=== PATIENT | female | born 1985 | race Caucasian/White ===

== ENCOUNTER → 2021-03-25 18:21 | Outpatient (CLI) | payer MEDICAID, SELFPAY ==
[2021-03-25 19:51] LABS: Alanine Aminotransferase 13 U/L (12-78); Albumin Level 4.5 g/dl (3.5-5.0); Albumin/Globulin Ratio 1.5 (1.1-1.8); Alkaline Phosphatase 89 U/L (38-126); Anion Gap 13.6 mEq/L (5-15); Aspartate Amino Transferase 25 U/L (14-36); Bilirubin,Total 0.3 mg/dl (0.2-1.3); Blood Urea Nitrogen 10 mg/dl (7-17); Calcium 9.1 mg/dl (8.4-10.2); Carbon Dioxide 27 mmol/L (22.0-30.0); Chloride 104 mmol/L (98-107); Chol/HDL Ratio 3.5 (1-3.5); Cholesterol 224 mg/dl (140-200); Estimated Glomerular Filt Rate 112 ml/min (>60); GFR (African American) 136 ML/MIN (>60); Globulin 3.1 g/dL (1.3-3.2); Glucose 93 mg/dl (74-100); HDL Cholesterol 64 mg/dl (40-60); Potassium 4.6 mmoL/L (3.5-5.1); Sodium 140 mmol/L (136-145); Total Protein,Serum 7.6 g/dl (6.3-8.2); Triglycerides 87 mg/dl (30-150); VLDL Cholesterol 17 mg/dL (0-40)
[2021-03-25 20:02] LABS: Direct LDL Cholesterol 136.16 mg/dL (100-129)
[2021-03-25 20:08] LABS: Free T4 (Free Thyroxine) 0.95 ng/dl (0.78-2.19)
[2021-03-25 20:10] LABS: 25-OH Vitamin D, Total 17.6 ng/mL (30-100)
[2021-03-25 20:23] LABS: Thyroid Stimulating Hormone 1.82 uIU/mL (0.465-4.68)
== END ==
PROVIDERS: Visit Provider Emergency Medicine
DX: R53.83 Other fatigue (principal); E55.9 Vitamin D deficiency, unspecified; Z79.899 Other long term (current) drug therapy
CPT/HCPCS: 80053; 80061; 82306; 84439; 84443

== ENCOUNTER → 2021-07-07 11:08 | Outpatient (CLI) | payer MEDICAID, SELFPAY ==
[2021-07-07 12:29] LABS: HCG,Quantitative < 2 mIU/ml (0-5.42)
== END ==
PROVIDERS: PCP Internal Medicine; Visit Provider Obstetrics & Gynecology
DX: Z34.90 Encounter for supervision of normal pregnancy, unspecified, unspecified trimester (principal)
CPT/HCPCS: 36415; 84702

== ENCOUNTER → 2021-07-09 13:53 | Outpatient (CLI) | payer MEDICAID, SELFPAY ==
[2021-07-09 14:42] LABS: Amphetamine/Metha Screen,Urine Negative ng/ml (<1000); Barbiturates Screen,Urine Negative ng/ml (<200)
[2021-07-09 14:43] LABS: Benzodiazepines Screen,Urine Negative ng/ml (<200)
[2021-07-09 14:44] LABS: Cannabinoid Screen,Urine Negative ng/ml (<50); Cocaine Screen,Urine Negative ng/ml (<300)
[2021-07-09 14:45] LABS: Methadone Screen,Urine Negative ng/ml (<300)
[2021-07-09 14:46] LABS: Opiate Screen,Urine Negative ng/ml (<300); Phencyclidine Screen,Urine Negative ng/ml (<25)
== END ==
PROVIDERS: Visit Provider Emergency Medicine
DX: Z79.899 Other long term (current) drug therapy (principal)
CPT/HCPCS: 80305

== ENCOUNTER → 2021-07-18 12:59 | Outpatient (CLI) | payer MEDICAID, SELFPAY ==
--- NOTE | 2021-07-18 12:59 | US_ITS ---
FINAL REPORT CLINICAL HISTORY: left supraclavicular questionable nodule COMPARISON: Sonographic imaging of the left supraclavicular region was obtained. FINDINGS: There is a 1.7 cm, ovoid, isoechoic mass in the left supraclavicular region which does not appear to be a cyst. Findings could represent lipoma. IMPRESSION: 1.7 cm mass in the left supraclavicular region which could represent a lipoma. Reviewed, Interpreted and Dictated by Salas Robbins III, MD Transcribed by Suzanna Hernandez Authenticated by Salas Robbins III, MD on 07/18/2021 02:05:06 PM [facility][1]
== END ==
PROVIDERS: PCP Emergency Medicine; Visit Provider Emergency Medicine
DX: R22.1 Localized swelling, mass and lump, neck (principal)
CPT/HCPCS: 76536

== ENCOUNTER → 2021-08-25 14:37 | Outpatient (CLI) | payer MEDICAID, SELFPAY ==
--- NOTE | 2021-08-25 14:37 | CT_ITS ---
FINAL REPORT TECHNIQUE: After the administration of intravenous contrast, axial images through the chest were performed by computed tomography.This study was performed with techniques to keep radiation doses as low as reasonably achievable, (ALARA). Individualized dose reduction techniques using automated exposure control or adjustment of mA and/or kV according to the patient''s size were employed. CLINICAL HISTORY: left supraclavicle mass FINDINGS: The mediastinal vasculature is well-opacified. There are small bilateral axillary lymph nodes measuring up to 1 cm. No supraclavicular mass is identified. There is no axillary adenopathy. There is no hilar or mediastinal adenopathy. The heart size is normal. There is no pericardial or pleural effusion. Limited images of the upper abdomen are unremarkable. No suspicious infiltrate or nodule identified. IMPRESSION: No acute process. No supraclavicular mass identified. Reviewed, Interpreted and Dictated by Aram Dinero MD Transcribed by Suzanna Hernandez Authenticated by Aram Dinero MD on 08/25/2021 04:07:38 PM [facility]
== END ==
PROVIDERS: PCP Emergency Medicine; Visit Provider Emergency Medicine
DX: R22.2 Localized swelling, mass and lump, trunk (principal)
CPT/HCPCS: 71260; Q9967

== ENCOUNTER → 2021-09-05 11:06 | Outpatient (CLI) | payer MEDICAID, SELFPAY ==
[2021-09-05 17:58] LABS: Barbiturates Screen,Urine Negative ng/ml (<200)
[2021-09-05 18:00] LABS: Benzodiazepines Screen,Urine Negative ng/ml (<200)
[2021-09-05 18:01] LABS: Cannabinoid Screen,Urine Negative ng/ml (<50); Cocaine Screen,Urine Negative ng/ml (<300)
[2021-09-05 18:02] LABS: Methadone Screen,Urine Negative ng/ml (<300); Opiate Screen,Urine Negative ng/ml (<300)
[2021-09-05 18:03] LABS: Phencyclidine Screen,Urine Negative ng/ml (<25)
[2021-09-05 18:44] LABS: Amphetamine/Metha Screen,Urine Positive ng/ml (<1000)
== END ==
PROVIDERS: Visit Provider Emergency Medicine
DX: Z79.899 Other long term (current) drug therapy (principal)
CPT/HCPCS: 80305

== ENCOUNTER → 2021-10-14 09:41 | Outpatient (CLI) | payer MEDICAID, SELFPAY ==
--- NOTE | 2021-10-14 09:48 | XR_ITS ---
FINAL REPORT CLINICAL HISTORY: shoulder pain, no recent injury FINDINGS: 3 views of the left shoulder were obtained. There is no acute fracture or dislocation. The joint spaces are intact. There are no soft tissue abnormalities. IMPRESSION: No acute process. Reviewed, Interpreted and Dictated by Aram Dinero MD Transcribed by Mario Gayle Authenticated by Aram Dinero MD on 10/14/2021 11:38:46 AM [facility]
== END ==
PROVIDERS: PCP Emergency Medicine; Visit Provider Orthopaedic Surgery
DX: M25.512 Pain in left shoulder (principal)
CPT/HCPCS: 73030

== ENCOUNTER → 2021-11-03 19:05 | Outpatient (CLI) | payer MEDICAID, SELFPAY ==
[2021-11-03 14:29] LABS: Amphetamine/Metha Screen,Urine Positive ng/ml (<1000)
[2021-11-03 14:30] LABS: Barbiturates Screen,Urine Negative ng/ml (<200); Benzodiazepines Screen,Urine Negative ng/ml (<200)
[2021-11-03 14:31] LABS: Cannabinoid Screen,Urine Negative ng/ml (<50)
[2021-11-03 14:32] LABS: Cocaine Screen,Urine Negative ng/ml (<300); Methadone Screen,Urine Negative ng/ml (<300)
[2021-11-03 14:33] LABS: Opiate Screen,Urine Negative ng/ml (<300)
[2021-11-03 14:34] LABS: Phencyclidine Screen,Urine Negative ng/ml (<25)
[2021-11-03 18:46] LABS: HCG Qualitative, Serum Negative (Negative)
[2021-11-03 18:56] LABS: Basophils # 0.1 K/mm3 (0-0.2); Basophils % 0.9 % (0.1-2.0); Eosinophils # 0.1 K/mm3 (0.0-0.4); Eosinophils % 1.1 % (0.1-12.0); Hematocrit 44.8 % (37.0-47.0); Hemoglobin 15.1 g/dL (12.2-16.2); Lymphocytes # 2.3 K/mm3 (0.7-4.5); Lymphocytes % 43.5 % (10-50); Mean Corpuscular HGB Conc 33.8 g/dL (31.8-35.4); Mean Corpuscular Hemoglobin 30.8 pg (27.0-31.2); Mean Corpuscular Volume 91.1 fl (81-99); Mean Platelet Volume 12.6 fl (7.4-10.4); Monocytes # 0.4 K/mm3 (0.1-1.0); Monocytes % 8.1 % (1.7-9.3); Neutrophils # 2.4 K/mm3 (1.8-7.8); Neutrophils % 46.4 % (37.0-80.0); Platelet Count 228 K/mm3 (142-424); Red Blood Count 4.92 M/mm3 (4.20-5.40); Red Cell Distribution Width 14.7 % (11.5-17.5); White Blood Count 5.2 K/mm3 (4.8-10.8)
== END ==
PROVIDERS: Visit Provider Emergency Medicine
DX: Z79.899 Other long term (current) drug therapy (principal); R53.83 Other fatigue
CPT/HCPCS: 80305; 84703; 85025

== ENCOUNTER → 2021-12-03 16:01 | Outpatient (CLI) | payer MEDICAID, SELFPAY ==
[2021-12-03 15:34] LABS: Barbiturates Screen,Urine Negative ng/ml (<200); Benzodiazepines Screen,Urine Negative ng/ml (<200)
[2021-12-03 15:35] LABS: Amphetamine/Metha Screen,Urine Negative ng/ml (<1000); Cannabinoid Screen,Urine Negative ng/ml (<50)
[2021-12-03 15:36] LABS: Cocaine Screen,Urine Negative ng/ml (<300)
[2021-12-03 15:37] LABS: Methadone Screen,Urine Negative ng/ml (<300); Opiate Screen,Urine Negative ng/ml (<300)
[2021-12-03 15:38] LABS: Phencyclidine Screen,Urine Negative ng/ml (<25)
== END ==
PROVIDERS: PCP Emergency Medicine; Visit Provider Emergency Medicine
DX: Z79.899 Other long term (current) drug therapy (principal)
CPT/HCPCS: 80305

== ENCOUNTER 2021-12-04 11:04 | Emergency (ER) | payer MEDICAID, SELFPAY ==
[2021-12-04 11:05] VITALS: BP 124/76; PULSE 102; RESP 16; TEMP 36.4; O2SAT 99; BMI 22.8
[2021-12-04 11:27] LABS: Basophils # 0.1 K/mm3 (0-0.2); Basophils % 0.8 % (0.1-2.0); Eosinophils % 0.1 % (0.1-12.0); Hemoglobin 13.5 g/dL (12.2-16.2); Lymphocytes % 20.8 % (10-50); Mean Corpuscular HGB Conc 33.8 g/dL (31.8-35.4); Mean Corpuscular Hemoglobin 31.2 pg (27.0-31.2); Mean Corpuscular Volume 92.1 fl (81-99); Mean Platelet Volume 8.8 fl (7.4-10.4); Monocytes # 0.2 K/mm3 (0.1-1.0); Neutrophils # 7.5 K/mm3 (1.8-7.8); Neutrophils % 76.3 % (37.0-80.0); Platelet Count 282 K/mm3 (142-424); Red Blood Count 4.34 M/mm3 (4.20-5.40); Red Cell Distribution Width 14.8 % (11.5-17.5); White Blood Count 9.8 K/mm3 (4.8-10.8)
[2021-12-04 11:28] LABS: Chloride 106 mmol/L (98-107); Sodium 140 mmol/L (136-145)
[2021-12-04 11:29] LABS: Potassium 3.2 mmoL/L (3.5-5.1)
[2021-12-04 11:31] LABS: Alanine Aminotransferase 41 U/L (12-78); Albumin Level 4.7 g/dl (3.5-5.0); Albumin/Globulin Ratio 1.4 (1.1-1.8); Alkaline Phosphatase 114 U/L (38-126); Anion Gap 21.2 mEq/L (5-15); Aspartate Amino Transferase 49 U/L (14-36); Bilirubin,Total 0.3 mg/dl (0.2-1.3); Blood Urea Nitrogen 14 mg/dl (7-17); Carbon Dioxide 16 mmol/L (22.0-30.0); Estimated Glomerular Filt Rate 62 ml/min (>60); GFR (African American) 75 ML/MIN (>60); Globulin 3.4 g/dL (1.3-3.2); Lipase 37 U/L (23-300); Total Protein,Serum 8.1 g/dl (6.3-8.2)
[2021-12-04 11:32] LABS: Calcium 9.5 mg/dl (8.4-10.2); Glucose 220 mg/dl (74-100)
--- NOTE | 2021-12-04 11:36 | PC.NURSE ---
Ice chips given to PT aware
[2021-12-04 11:41] LABS: Ethyl Alcohol < 10 mg/dl (0-10)
--- NOTE | 2021-12-04 11:43 | HMH.EDSEIZ ---
ED Disposition Clinical Impression: Generalized seizure Disposition: Home, Self-Care Condition on Discharge: Good Instructions: DI for Seizure Disorder -- Adult Referrals: Provider,MD Preet [Primary Care Provider] - Elsie Ayala MD [Staff Physician] - - Critical Care Critical Care Time: No Attestation: On 12/04/21, the high probability of a clinically significant, sudden or life threatening deterioration of the following system(s) required my full and direct attention, intervention and personal management. The time I documented below is in addition to time spent performing reported procedures but includes the following listed in this critical care notation. Medical Decision Making - Medical Records Medical records reviewed: Yes: I reviewed the patient's medical records. - Rj Inquiry Pt receiving controlled substance: No Vital Signs: 12/04/21 11:05 12/04/21 11:59 Temperature 97.5 F L Temperature Source Oral Pulse Rate [Left Radial] 102 H Respiratory Rate 16 18 Blood Pressure 95/61 L Blood Pressure [Right Arm] 124/76 Blood Pressure Mean 72 Blood Pressure Mean [Right Arm] 92 Blood Pressure Source [Right Arm] Automatic Cuff Blood Pressure Position [Right Arm] Sitting 02 Sat by Pulse Oximetry 99 Oxygen Delivery Method Room Air - Lab Data Lab Results 12/04/21 11:05: WBC 9.8, RBC 4.34, Hgb 13.5, Hct 40.0, MCV 92.1, MCH 31.2, MCHC 33.8, RDW 14.8, Plt Count 282, MPV 8.8, Neut % (Auto) 76.3, Lymph % (Auto) 20.8, [place] % (Auto) 2.0, Eos % (Auto) 0.1, Baso % (Auto) 0.8, Neut # (Auto) 7.5, Lymph # (Auto) 2.0, Pratt # (Auto) 0.2, Eos # (Auto) 0.0, Baso # (Auto) 0.1 12/04/21 11:05: Sodium 140, Potassium 3.2 L, Chloride 106, Carbon Dioxide 16 L, Anion Gap 21.2 H, BUN 14, Creatinine 1.00, Estimated GFR 62, Est GFR ( Amer) 75, Glucose 220 H, Calcium 9.5, Total Bilirubin 0.3, AST 49 H, ALT 41, Alkaline Phosphatase 114, Troponin I < 0.01, Total Protein 8.1, Albumin 4.7, Globulin 3.4 H, Albumin/Globulin Ratio 1.4, Lipase 37, TSH 2.51 12/04/21 11:05: Plasma/Serum Alcohol < 10 12/04/21 11:05: HCG, Quant < 2 12/04/21 11:05: Acetone Level None detected 12/04/21 12:47: Urine Color Yellow, Urine Appearance Clear, Urine pH 5.5, Ur Specific [place] 1.025, Urine Protein Trace, Urine Glucose (UA) Negative, Urine Ketones Negative, Urine Blood 1+, Urine Nitrate Negative, Urine Bilirubin Negative, Urine Urobilinogen 0.2, Ur Leukocyte Esterase Negative, Urine RBC 3-5, Urine WBC Occasional, Ur Squamous Epith Cells 3-5, Urine Bacteria Trace 12/04/21 12:49: Urine Opiates Screen Negative, Urine Methadone Screen Negative, Ur Barbituates Screen Negative, Ur Phencyclidine Scrn Negative, U Benzodiazepines Scrn Positive H, Urine Cocaine Screen Negative, U Marijuana (THC) Screen Negative Result diagrams: 12/04/21 11:05 12/04/21 11:05 Orders (Tests/Meds): ED MEDICATIONS Discontinued Medications Generic Name Dose Route Start Last Admin Trade Name Freq PRN Reason Stop Dose Admin Sodium Chloride 1,000 mls @ 999 mls/hr 12/04/21 11:30 12/04/21 11:49 Sod Chlor 0.9% 1000ml Bag IV 12/04/21 12:30 999 mls/hr .Q1H1M ANIBAL Administration Lorazepam 2 mg 12/04/21 11:17 12/04/21 11:17 Lorazepam 2mg/Ml Vial IV 12/04/21 11:18 2 mg ONCE ONE Administration Ondansetron HCl 4 mg 12/04/21 11:30 12/04/21 11:31 Ondansetron 4mg/2ml Vial IV 12/04/21 11:31 4 mg ONCE ONE Administration ORDERS Category Date Time Status Lactic Acid Stat Lab 12/04/21 11:18 Ordered Rapid PCR Covid and Flu A/B Stat Lab 12/04/21 11:19 Ordered Troponin I Q3H Lab 12/04/21 14:30 Ordered Troponin I Q3H Lab 12/04/21 17:30 Ordered UDS [Drug Screen,Urine] Stat Lab 12/04/21 12:49 Results - CT Data CT Scan: Head Time Received: 14:[address] Reviewed: Yes: I have reviewed the patient's CT results, I have viewed the radiologist's interpretation Findings Narrative: IMPRESSION: No acute intracranial abnormality. - R
[2021-12-04 11:47] LABS: Troponin I < 0.01 ng/ml (0.00-0.034)
[2021-12-04 11:52] LABS: Acetone, Serum (Rapid) None Detected (None Detect)
[2021-12-04 11:56] LABS: HCG,Quantitative < 2 mIU/ml (0-5.42)
--- NOTE | 2021-12-04 11:57 | CT_ITS ---
FINAL REPORT CLINICAL HISTORY: ams, seizure FINDINGS: Axial images of the head were obtained without contrast. Coronal reformatted images were also obtained.This study was performed with techniques to keep radiation doses as low as reasonably achievable (ALARA). Individualized dose reduction techniques using automated exposure control or adjustment of mA and/or kV according to the patient's size were employed. There is no evidence of intracranial hemorrhage or mass. The ventricular size is within normal limits. There is no evidence of shift of the midline structures. No abnormal extra axial fluid collection is identified. No skull abnormality is seen on the bone window images. IMPRESSION: No acute intracranial abnormality. Reviewed, Interpreted and Dictated by Salas Robbins III, MD Transcribed by Yamel Jensen Authenticated and [facility]
[2021-12-04 11:59] VITALS: BP 95/61; RESP 18
--- NOTE | 2021-12-04 11:59 | PC.NURSE ---
family with pt, pt states at this time she cant urinate, will try after fluid bolus
[2021-12-04 12:00] VITALS: BP 95/52
[2021-12-04 12:02] LABS: Thyroid Stimulating Hormone 2.51 uIU/mL (0.465-4.68)
--- NOTE | 2021-12-04 12:37 | PC.NURSE ---
pt in CT
--- NOTE | 2021-12-04 12:51 | PC.NURSE ---
pt carrie britton obtained and sent to lab
[2021-12-04 12:52] LABS: Microscopic, Urine URINE MICROSCOPIC (MICROSCOPIC)
[2021-12-04 12:53] LABS: Appearance,Urine CLEAR (Clear); Bilirubin,Urine Negative (Negative); Blood, Urine 1+ (Negative); Color,Urine YELLOW (Yellow); Glucose,Urine (UA) Negative (Negative); Ketones,Urine Negative (Negative); Leukocyte Esterase,Urine Negative (Negative); Nitrate,Urine Negative (Negative); PH,Urine 5.5 (5.0-8.5); Protein,Urine TRACE (Negative); Specific Gravity, Urine 1.025 (1.005-1.030); Urobilinogen,Urine 0.2 EU/dl (0.2)
[2021-12-04 13:06] LABS: Bacteria,Urine Trace /lpf; WBC,Urine Occasional #/hpf (0-3)
[2021-12-04 13:37] LABS: Barbiturates Screen,Urine Negative ng/ml (<200)
[2021-12-04 13:38] LABS: Benzodiazepines Screen,Urine Positive ng/ml (<200)
[2021-12-04 13:39] LABS: Cannabinoid Screen,Urine Negative ng/ml (<50); Cocaine Screen,Urine Negative ng/ml (<300)
[2021-12-04 13:40] LABS: Methadone Screen,Urine Negative ng/ml (<300); Opiate Screen,Urine Negative ng/ml (<300)
[2021-12-04 13:41] LABS: Phencyclidine Screen,Urine Negative ng/ml (<25)
[2021-12-04 14:12] VITALS: BP 95/52; PULSE 76; RESP 16; TEMP 36.4; O2SAT 99
[2021-12-16 07:13] LABS: Amphetamine Positive (.); Amphetamine (GC/MS) 1821 ng/mL (Cutoff=500); Amphetamines Positive (.); Methamphetamine Positive (.); Methamphetamine (GC/MS) >3000 ng/mL (Cutoff=500)
== END 2021-12-04 14:13 | disposition home or self-care (01) ==
PROVIDERS: Emergency Provider Emergency Medicine
DX: R56.9 Unspecified convulsions (principal); F41.9 Anxiety disorder, unspecified; F32.A Depression, unspecified; F19.11 Other psychoactive substance abuse, in remission; Z72.0 Tobacco use
CPT/HCPCS: 70450; 80053; 80305; 80324; 81001; 82009; 83690; 84443; 84484; 84702; 85025; 96365; 96375; 99284; J2405

== ENCOUNTER → 2021-12-31 16:32 | Outpatient (CLI) | payer MEDICAID, SELFPAY ==
[2021-12-31 14:20] LABS: Barbiturates Screen,Urine Negative ng/ml (<200)
[2021-12-31 14:21] LABS: Benzodiazepines Screen,Urine Negative ng/ml (<200); Cannabinoid Screen,Urine Negative ng/ml (<50)
[2021-12-31 14:22] LABS: Cocaine Screen,Urine Negative ng/ml (<300)
[2021-12-31 14:23] LABS: Methadone Screen,Urine Negative ng/ml (<300); Opiate Screen,Urine Negative ng/ml (<300)
[2021-12-31 14:24] LABS: Phencyclidine Screen,Urine Negative ng/ml (<25)
[2021-12-31 17:06] LABS: Amphetamine/Metha Screen,Urine Positive ng/ml (<1000)
== END ==
PROVIDERS: Visit Provider Emergency Medicine
DX: F41.9 Anxiety disorder, unspecified (principal)
CPT/HCPCS: 80305

== ENCOUNTER → 2022-03-30 16:01 | Outpatient (CLI) | payer MEDICAID, SELFPAY ==
[2022-03-30 15:30] LABS: Amphetamine/Metha Screen,Urine Negative ng/ml (<1000); Barbiturates Screen,Urine Negative ng/ml (<200)
[2022-03-30 15:31] LABS: Benzodiazepines Screen,Urine Negative ng/ml (<200)
[2022-03-30 15:32] LABS: Cannabinoid Screen,Urine Negative ng/ml (<50); Cocaine Screen,Urine Negative ng/ml (<300)
[2022-03-30 15:33] LABS: Methadone Screen,Urine Negative ng/ml (<300)
[2022-03-30 15:34] LABS: Opiate Screen,Urine Negative ng/ml (<300); Phencyclidine Screen,Urine Negative ng/ml (<25)
== END ==
PROVIDERS: PCP Emergency Medicine; Visit Provider Emergency Medicine
DX: Z79.899 Other long term (current) drug therapy (principal)
CPT/HCPCS: 80305

== ENCOUNTER → 2022-06-30 06:30 | Outpatient (CLI) | payer MEDICAID, SELFPAY ==
[2022-06-30 20:07] LABS: Amphetamine/Metha Screen,Urine Negative ng/ml (<1000); Barbiturates Screen,Urine Negative ng/ml (<200)
[2022-06-30 20:08] LABS: Benzodiazepines Screen,Urine Negative ng/ml (<200)
[2022-06-30 20:09] LABS: Cannabinoid Screen,Urine Negative ng/ml (<50); Cocaine Screen,Urine Negative ng/ml (<300)
[2022-06-30 20:10] LABS: Methadone Screen,Urine Negative ng/ml (<300)
[2022-06-30 20:11] LABS: Opiate Screen,Urine Negative ng/ml (<300); Phencyclidine Screen,Urine Negative ng/ml (<25)
== END ==
PROVIDERS: PCP Emergency Medicine; Visit Provider Emergency Medicine
DX: Z79.899 Other long term (current) drug therapy (principal)
CPT/HCPCS: 80305

== ENCOUNTER → 2022-08-11 23:00 | Outpatient (CLI) | payer MEDICAID, SELFPAY ==
[2022-08-12 16:53] LABS: Amphetamine/Metha Screen,Urine Positive ng/ml (<1000); Barbiturates Screen,Urine Negative ng/ml (<200); Benzodiazepines Screen,Urine Negative ng/ml (<200); Cannabinoid Screen,Urine Negative ng/ml (<50); Cocaine Screen,Urine Negative ng/ml (<300); Methadone Screen,Urine Negative ng/ml (<300); Opiate Screen,Urine Negative ng/ml (<300); Phencyclidine Screen,Urine Negative ng/ml (<25)
== END ==
PROVIDERS: PCP Emergency Medicine; Visit Provider Emergency Medicine
DX: Z79.899 Other long term (current) drug therapy (principal)
CPT/HCPCS: 80305

== ENCOUNTER → 2022-09-11 20:08 | Outpatient (CLI) | payer MEDICAID, SELFPAY ==
--- NOTE | 2022-09-11 | XR_ITS ---
PROCEDURE INFORMATION: Exam: XR Cervical Spine Exam date and time: 09/11/2022 9:34 PM Age: 37 years old Clinical indication: Injury or trauma; Fall; Additional info: Pain from fall TECHNIQUE: Imaging protocol: Radiologic exam of the cervical spine. Views: 4 or 5 views. COMPARISON: CR Thoracic spine 09/11/2022 9:30 PM FINDINGS: Bones/joints: Normal. No acute fracture. Normal alignment. Soft tissues: Unremarkable. IMPRESSION: No acute findings.
--- NOTE | 2022-09-11 | XR_ITS ---
PROCEDURE INFORMATION: Exam: XR Thoracic Spine Exam date and time: 09/11/2022 9:30 PM Age: 37 years old Clinical indication: Injury or trauma; Fall; Additional info: Pain from fall TECHNIQUE: Imaging protocol: Radiologic exam of the thoracic spine. Views: 3 views. COMPARISON: CT CHEST W CON 08/25/2021 2:58 PM FINDINGS: Bones/joints: There is no evidence of acute fracture.There is no evidence of malalignment or dislocation. Soft tissues: Unremarkable. IMPRESSION: There is no evidence of acute fracture.There is no evidence of malalignment or dislocation.
--- NOTE | 2022-09-11 | XR_ITS ---
PROCEDURE INFORMATION: Exam: XR Pelvis Exam date and time: 09/11/2022 9:29 PM Age: 37 years old Clinical indication: Pain; Other: Fall; Additional info: Pain from fall TECHNIQUE: Imaging protocol: Radiologic exam of the pelvis. Views: 1 or 2 view. COMPARISON: No relevant prior studies available. FINDINGS: Bones/joints: There is no evidence of acute fracture.There is no evidence of malalignment or dislocation. Mild degenerative changes in hip joints Soft tissues: Unremarkable. IMPRESSION: There is no evidence of acute fracture.There is no evidence of malalignment or dislocation.
--- NOTE | 2022-09-11 | XR_ITS ---
PROCEDURE INFORMATION: Exam: XR Left Shoulder Exam date and time: 09/11/2022 9:37 PM Age: 37 years old Clinical indication: Pain; Shoulder; Left; Additional info: Pain from a fall TECHNIQUE: Imaging protocol: Radiologic exam of the left shoulder. Views: 2 or more views. COMPARISON: CR XR SHOULDER LT MIN 2V 10/14/2021 10:08 AM FINDINGS: Bones/joints: There is no evidence of acute fracture.There is no evidence of malalignment or dislocation. Soft tissues: Normal. IMPRESSION: There is no evidence of acute fracture.There is no evidence of malalignment or dislocation.
== END ==
PROVIDERS: PCP Emergency Medicine; Visit Provider Emergency Medicine
DX: M54.2 Cervicalgia (principal); M54.6 Pain in thoracic spine; M25.512 Pain in left shoulder; R10.2 Pelvic and perineal pain; W19.XXXA Unspecified fall, initial encounter
CPT/HCPCS: 72050; 72072; 72170; 73030

== ENCOUNTER → 2022-09-14 23:27 | Outpatient (CLI) | payer MEDICAID, SELFPAY ==
[2022-09-14 19:14] LABS: Amphetamine/Metha Screen,Urine Negative ng/ml (<1000)
[2022-09-14 19:15] LABS: Barbiturates Screen,Urine Negative ng/ml (<200)
[2022-09-14 19:16] LABS: Benzodiazepines Screen,Urine Positive ng/ml (<200); Cannabinoid Screen,Urine Negative ng/ml (<50)
[2022-09-14 19:17] LABS: Cocaine Screen,Urine Negative ng/ml (<300); Methadone Screen,Urine Negative ng/ml (<300)
[2022-09-14 19:18] LABS: Opiate Screen,Urine Positive ng/ml (<300)
[2022-09-14 19:19] LABS: Phencyclidine Screen,Urine Negative ng/ml (<25)
== END ==
PROVIDERS: PCP Emergency Medicine; Visit Provider Emergency Medicine
DX: Z79.899 Other long term (current) drug therapy (principal)
CPT/HCPCS: 80305

== ENCOUNTER → 2022-09-15 11:32 | Outpatient (CLI) | payer MEDICAID, SELFPAY ==
--- NOTE | 2022-09-15 11:37 | XR_ITS ---
FINAL REPORT CLINICAL HISTORY: hand pain after fall in Jun 2022 FINDINGS: 3 views of the right hand were obtained. There is no acute fracture or dislocation. The joint spaces are intact. There is no soft tissue abnormality. IMPRESSION: No acute process. Reviewed, Interpreted and Dictated by Salas Robbins III, MD Transcribed by Mario Gayle Authenticated and [facility]
--- NOTE | 2022-09-15 11:37 | XR_ITS ---
FINAL REPORT CLINICAL HISTORY: hand pain after fall in Jun 2022 FINDINGS: 3 views of the left hand were obtained. There is the former knee of the distal aspect of the 5th middle phalanx that may be subacute to chronic. There are mild degenerative changes. There is mild flexion deformity of the 5th D IP joint. There is no soft tissue abnormality. IMPRESSION: Deformity of the distal 5th middle phalanx may be subacute to chronic. Reviewed, Interpreted and Dictated by Salas Robbins III, MD Transcribed by Mario Gayle Authenticated and [facility]
== END ==
PROVIDERS: PCP Emergency Medicine; Visit Provider Emergency Medicine
DX: M79.641 Pain in right hand (principal); M79.642 Pain in left hand; W19.XXXA Unspecified fall, initial encounter
CPT/HCPCS: 73130

== ENCOUNTER → 2022-10-12 19:01 | Outpatient (CLI) | payer MEDICAID, SELFPAY ==
[2022-10-12 19:44] LABS: Amphetamine/Metha Screen,Urine Negative ng/ml (<1000); Barbiturates Screen,Urine Negative ng/ml (<200)
[2022-10-12 19:45] LABS: Benzodiazepines Screen,Urine Negative ng/ml (<200); Cocaine Screen,Urine Negative ng/ml (<300)
[2022-10-12 19:46] LABS: Methadone Screen,Urine Negative ng/ml (<300)
[2022-10-12 19:47] LABS: Cannabinoid Screen,Urine Negative ng/ml (<50); Opiate Screen,Urine Negative ng/ml (<300)
[2022-10-12 19:48] LABS: Phencyclidine Screen,Urine Negative ng/ml (<25)
== END ==
PROVIDERS: PCP Emergency Medicine; Visit Provider Emergency Medicine
DX: Z79.899 Other long term (current) drug therapy (principal)
CPT/HCPCS: 80305

== ENCOUNTER → 2022-12-11 23:16 | Outpatient (CLI) | payer MEDICAID, SELFPAY ==
[2022-12-11 18:17] LABS: Barbiturates Screen,Urine Negative ng/ml (<200)
[2022-12-11 18:18] LABS: Amphetamine/Metha Screen,Urine Negative ng/ml (<1000); Benzodiazepines Screen,Urine Negative ng/ml (<200)
[2022-12-11 18:19] LABS: Methadone Screen,Urine Negative ng/ml (<300)
[2022-12-11 18:20] LABS: Cannabinoid Screen,Urine Negative ng/ml (<50); Cocaine Screen,Urine Negative ng/ml (<300)
[2022-12-11 18:21] LABS: Opiate Screen,Urine Positive ng/ml (<300)
[2022-12-11 18:22] LABS: Phencyclidine Screen,Urine Negative ng/ml (<25)
== END ==
PROVIDERS: PCP Emergency Medicine; Visit Provider Emergency Medicine
DX: Z79.899 Other long term (current) drug therapy (principal)
CPT/HCPCS: 80305

== ENCOUNTER → 2023-02-25 12:35 | Outpatient (CLI) | payer MEDICAID, SELFPAY ==
--- NOTE | 2023-02-25 12:40 | XR_ITS ---
FINAL REPORT CLINICAL HISTORY: Rt elbow pain COMPARISON: None FINDINGS: Three views of the right elbow were obtained. There is no acute fracture or dislocation. The joint spaces are well preserved. There is no acute soft tissue abnormality. IMPRESSION: No acute abnormality identified. Reviewed, Interpreted and Dictated by Aram Dinero MD Transcribed by Nanci Dumont Authenticated and . [facility]
== END ==
PROVIDERS: PCP Emergency Medicine; Visit Provider Orthopaedic Surgery
DX: M25.521 Pain in right elbow (principal)
CPT/HCPCS: 73080

== ENCOUNTER → 2023-05-05 23:28 | Outpatient (CLI) | payer MEDICAID, SELFPAY ==
[2023-05-05 20:12] LABS: Alanine Aminotransferase 18 U/L (12-78); Albumin Level 4.8 g/dl (3.5-5.0); Albumin/Globulin Ratio 1.4 (1.1-1.8); Alkaline Phosphatase 97 U/L (38-126); Anion Gap 15.6 mEq/L (5-15); Aspartate Amino Transferase 32 U/L (14-36); Bilirubin,Total 0.5 mg/dl (0.2-1.3); Blood Urea Nitrogen 11 mg/dl (7-17); Calcium 9.7 mg/dl (8.4-10.2); Carbon Dioxide 23 mmol/L (22.0-30.0); Chloride 103 mmol/L (98-107); Cholesterol 272 mg/dl (140-200); Estimated Glomerular Filt Rate 93 ml/min (>60); GFR (African American) 113 ML/MIN (>60); Globulin 3.4 g/dL (1.3-3.2); Glucose 87 mg/dl (74-100); HDL Cholesterol 68 mg/dl (40-60); Potassium 4.6 mmoL/L (3.5-5.1); Sodium 137 mmol/L (136-145); Total Protein,Serum 8.2 g/dl (6.3-8.2); Triglycerides 103 mg/dl (30-150); VLDL Cholesterol 21 mg/dL (0-40)
[2023-05-05 20:23] LABS: Direct LDL Cholesterol 166.55 mg/dL (100-129)
[2023-05-05 20:44] LABS: Thyroid Stimulating Hormone 2.33 uIU/mL (0.465-4.68)
[2023-05-05 21:03] LABS: Amphetamine/Metha Screen,Urine Negative ng/ml (<1000); Barbiturates Screen,Urine Negative ng/ml (<200)
[2023-05-05 21:04] LABS: Benzodiazepines Screen,Urine Negative ng/ml (<200); Cannabinoid Screen,Urine Negative ng/ml (<50)
[2023-05-05 21:05] LABS: Cocaine Screen,Urine Negative ng/ml (<300)
[2023-05-05 21:06] LABS: Methadone Screen,Urine Negative ng/ml (<300); Opiate Screen,Urine Negative ng/ml (<300)
[2023-05-05 21:07] LABS: Phencyclidine Screen,Urine Negative ng/ml (<25)
== END ==
PROVIDERS: PCP Emergency Medicine; Visit Provider Emergency Medicine
DX: E78.5 Hyperlipidemia, unspecified (principal); E55.9 Vitamin D deficiency, unspecified; Z79.899 Other long term (current) drug therapy
CPT/HCPCS: 80053; 80061; 80305; 84443

== ENCOUNTER → 2023-06-17 12:00 | Outpatient (CLI) | payer MEDICAID, SELFPAY ==
[2023-06-17 18:10] LABS: Adenovirus,PCR Not Detected (NotDetected); Coronavirus 19, PCR Not Detected (NotDetected); Coronavirus 229E Not Detected (NotDetected); Coronavirus NL63 Not Detected (NotDetected); Coronavirus OC43 Not Detected (NotDetected); Coronovirus HKU1,PCR Not Detected (NotDetected); Human Metapneumovirus Not Detected (NotDetected); Influenza A, PCR Not Detected (NotDetected); Influenza AH1, 2009 Not Detected (NotDetected); Influenza AH1, PCR Not Detected (NotDetected); Influenza AH3,PCR Not Detected (NotDetected); Influenza B, PCR Not Detected (NotDetected); Parainfluenza 1, PCR Not Detected (NotDetected); Parainfluenza 2, PCR Not Detected (NotDetected); Parainfluenza 3, PCR Not Detected (NotDetected); Parainfluenza 4, PCR Not Detected (NotDetected); Respiratory Syncytial Virus Not Detected (NotDetected); Rhinovirus/Enterovirus Not Detected (NotDetected)
== END ==
LOC: LAB.DROPOF 06-18 00:11
PROVIDERS: PCP Internal Medicine; Visit Provider Nurse Practitioner Family
DX: R11.2 Nausea with vomiting, unspecified (principal); R19.7 Diarrhea, unspecified; R43.8 Other disturbances of smell and taste; R52 Pain, unspecified; F17.210 Nicotine dependence, cigarettes, uncomplicated; E55.9 Vitamin D deficiency, unspecified; J20.8 Acute bronchitis due to other specified organisms; B96.89 Other specified bacterial agents as the cause of diseases classified elsewhere; J01.00 Acute maxillary sinusitis, unspecified; R68.83 Chills (without fever); R05.8 Other specified cough; Z20.822 Contact with and (suspected) exposure to COVID-19
CPT/HCPCS: 87632; 87635

== ENCOUNTER 2024-01-03 11:01 | Outpatient (CLI) | payer MEDICAID, SELFPAY ==
[2024-01-03 19:49] LABS: Alanine Aminotransferase 14 U/L (12-78); Albumin Level 4.4 g/dl (3.5-5.0); Albumin/Globulin Ratio 1.4 (1.1-1.8); Alkaline Phosphatase 95 U/L (38-126); Anion Gap 13.3 mEq/L (5-15); Aspartate Amino Transferase 24 U/L (14-36); Bilirubin,Total 0.3 mg/dl (0.2-1.3); Blood Urea Nitrogen 15 mg/dl (7-17); Calcium 9.5 mg/dl (8.4-10.2); Carbon Dioxide 29 mmol/L (22.0-30.0); Chloride 101 mmol/L (98-107); Chol/HDL Ratio 4.8 (1-3.5); Cholesterol 252 mg/dl (140-200); Estimated Glomerular Filt Rate 69 ml/min (>60); GFR (African American) 84 ML/MIN (>60); Globulin 3.2 g/dL (1.3-3.2); Glucose 92 mg/dl (74-100); HDL Cholesterol 53 mg/dl (40-60); Potassium 4.3 mmoL/L (3.5-5.1); Sodium 139 mmol/L (136-145); Total Protein,Serum 7.6 g/dl (6.3-8.2); Triglycerides 152 mg/dl (30-150); VLDL Cholesterol 30 mg/dL (0-40)
[2024-01-03 19:57] LABS: Basophils # 0.1 K/mm3 (0-0.2); Basophils % 0.8 % (0.1-2.0); Eosinophils # 0.1 K/mm3 (0.0-0.4); Eosinophils % 1.6 % (0.1-12.0); Hematocrit 43.2 % (37.0-47.0); Hemoglobin 15.2 g/dL (12.2-16.2); Lymphocytes # 2.8 K/mm3 (0.7-4.5); Lymphocytes % 47.2 % (10-50); Mean Corpuscular HGB Conc 35.2 g/dL (31.8-35.4); Mean Corpuscular Hemoglobin 33.3 pg (27.0-31.2); Mean Corpuscular Volume 94.5 fl (81-99); Mean Platelet Volume 10.7 fl (7.4-10.4); Monocytes # 0.2 K/mm3 (0.1-1.0); Monocytes % 3.7 % (1.7-9.3); Neutrophils # 2.8 K/mm3 (1.8-7.8); Neutrophils % 46.6 % (37.0-80.0); Platelet Count 202 K/mm3 (142-424); Red Blood Count 4.58 M/mm3 (4.20-5.40); Red Cell Distribution Width 14.2 % (11.5-17.5)
[2024-01-03 20:01] LABS: Direct LDL Cholesterol 153.52 mg/dL (100-129)
[2024-01-03 20:04] LABS: 25-OH Vitamin D, Total 20.5 ng/mL (30-100)
[2024-01-03 20:18] LABS: Thyroid Stimulating Hormone 3.14 uIU/mL (0.465-4.68)
[2024-01-03 21:00] LABS: Hemoglobin A1C 5.2 % (4.0-6.0)
== END 2024-01-03 23:59 | disposition home or self-care (01) ==
LOC: LAB.DROPOF 01-04 11:02
PROVIDERS: PCP Family Medicine; Visit Provider Family Medicine
DX: E55.9 Vitamin D deficiency, unspecified (principal); E78.5 Hyperlipidemia, unspecified
CPT/HCPCS: 80050; 80053; 80061; 82306; 83036; 84443; 85025

== ENCOUNTER 2024-02-16 19:36 | Outpatient (CLI) | payer MEDICAID, SELFPAY ==
[2024-02-16 19:51] LABS: Adenovirus,PCR Not Detected (NotDetected); Bordetella Pertussis Not Detected (NotDetected); Chlamydophila Pneumoniae, PCR Not Detected (NotDetected); Coronavirus 19, PCR Not Detected (NotDetected); Coronavirus 229E Not Detected (NotDetected); Coronavirus NL63 Not Detected (NotDetected); Coronavirus OC43 Not Detected (NotDetected); Coronovirus HKU1,PCR Not Detected (NotDetected); Human Metapneumovirus Not Detected (NotDetected); Influenza A, PCR Not Detected (NotDetected); Influenza AH1, 2009 Not Detected (NotDetected); Influenza AH1, PCR Not Detected (NotDetected); Influenza AH3,PCR Not Detected (NotDetected); Influenza B, PCR Not Detected (NotDetected); Mycoplasma Pneumoniae, PCR Not Detected (NotDetected); Parainfluenza 1, PCR Not Detected (NotDetected); Parainfluenza 2, PCR Not Detected (NotDetected); Parainfluenza 3, PCR Not Detected (NotDetected); Parainfluenza 4, PCR Not Detected (NotDetected); Respiratory Syncytial Virus Not Detected (NotDetected); Rhinovirus/Enterovirus Not Detected (NotDetected)
== END 2024-02-16 23:59 | disposition home or self-care (01) ==
LOC: LAB.DROPOF 19:37
PROVIDERS: PCP Nurse Practitioner Family; Visit Provider Nurse Practitioner Family
DX: R06.02 Shortness of breath (principal); R05.9 Cough, unspecified; R53.83 Other fatigue; R11.0 Nausea
CPT/HCPCS: 87581; 87632; 87635; 87798